=== PATIENT | female | born 1965 | race African-American/Black ===

== ENCOUNTER 2017-02-21 12:52 | Emergency (ER) | payer SELFPAY ==
[~2017-02-21] VITALS: Ht 165.1 cm; Wt 85.0 kg
[2017-02-21] MEDS ORDERED: HALOPERIDOL LACTATE 5MG/ML VIAL IM STA (13:29)
[2017-02-21] MEDS ORDERED: SODIUM CHLORIDE 0.9% 1,000 ML IV ONE (13:29)
[2017-02-21] MEDS ORDERED: LORAZEPAM 2MG/ML CPJ IV STA (13:29)
[2017-02-21 14:41] LABS: BASOPHILS % 0.6 % (0.0-2.0); EOSINOPHILS % 0.5 % (0.0-5.0); HEMATOCRIT. 43.7 % (36.0-48.0); HEMOGLOBIN. 14.9 g/dL (12.0-16.0); LYMPHOCYTES % 23.2 % (20.0-50.0); MEAN CORPUSCULAR HEMOGLOBIN 28.7 pg (28.0-32.0); MEAN PLATELET VOLUME 7.9 fl (7.4-10.4); MONOCYTES % 6.5 % (2.0-8.0); NEUTROPHILS % 69.2 % (40.0-76.0); PLATELET 322 x1000/uL (130-400); RED CELL DISTRIBUTION WIDTH 13.8 % (11.6-14.6)
[2017-02-21 14:57] LABS: CARBON DIOXIDE 27 mEq/L (21-32); CHLORIDE 106 mEq/L (98-107); ETHANOL BLOOD < 10 mg/dL
[2017-02-21 15:04] LABS: HCG SCREEN NEGATIVE
[2017-02-21] MEDS ORDERED: OLANZAPINE 10 MG/VIAL IM STA (15:29)
[2017-02-21] MEDS ORDERED: OLANZAPINE 10 MG/VIAL IM SCH (15:30)
[2017-02-21 16:01] LABS: CLARITY URINE CLEAR (CLEAR); COLOR URINE YELLOW (YELLOW); GLUCOSE URINE NEGATIVE (NEGATIVE); KETONES URINE NEGATIVE (NEGATIVE); LEUKOCYTE ESTERASE URINE NEGATIVE (NEGATIVE); NITRITE URINE NEGATIVE (NEGATIVE); OCCULT BLOOD URINE NEGATIVE (NEGATIVE); PH URINE 8.5 (4.5-8.0); PROTEIN URINE NEGATIVE (NEGATIVE); SPECIFIC GRAVITY URINE 1.009 (1.005-1.030); UROBILINOGEN URINE 0.2 E.U./dL (0.2-1.0)
[2017-02-21 16:21] LABS: *AMPHETAMINES SCREEN URINE NEGATIVE (NEGATIVE); *BARBITURATES SCREEN URINE NEGATIVE (NEGATIVE); *BENZODIAZEPINES SCREEN URINE PRESUMTIVE POSITIVE (NEGATIVE); *COCAINE SCREEN URINE NEGATIVE (NEGATIVE); CANNABINOID URINE SCREEN PRESUMTIVE POSITIVE (NEGATIVE); METHADONE URINE SCREEN NEGATIVE (NEGATIVE); OPIATES URINE SCREEN NEGATIVE (NEGATIVE); PHENCYCLIDINE URINE SCREEN NEGATIVE (NEGATIVE)
[2017-02-21] MEDS ORDERED: OLANZAPINE 10 MG/VIAL IM ONE (21:45)
[2017-02-22] MEDS ORDERED: OLANZAPINE 10 MG/VIAL IM ONE (07:15)
[2017-02-22 10:00] VITALS: BP 137/79
== END 2017-02-22 12:37 | disposition home or self-care (01) ==
LOC: ER 13:23
DX: F23 Brief psychotic disorder (principal); G93.40 Encephalopathy, unspecified
CPT/HCPCS: 36415; 70450; 80053; 80305; 80307; 80329; 81003; 84443; 84703; 85025; 96361; 96372; 96374; 99285; G0482; J1630; J2060; J3490; J7030; Z7610

== ENCOUNTER 2017-02-25 09:46 | Emergency (ER) | payer OTHER ==
[~2017-02-25] VITALS: Ht 170.2 cm; Wt 70.0 kg
[2017-02-25 09:48] VITALS: BP 180/90
[2017-02-25] MEDS ORDERED: LORAZEPAM 2MG/ML CPJ IM ONE (11:45)
[2017-02-25 12:24] LABS: BASOPHILS % 0.8 % (0.0-2.0); EOSINOPHILS % 0.2 % (0.0-5.0); HEMATOCRIT. 42.1 % (36.0-48.0); HEMOGLOBIN. 14.4 g/dL (12.0-16.0); LYMPHOCYTES % 15.2 % (20.0-50.0); MEAN CORPUSCULAR HEMOGLOBIN 28.8 pg (28.0-32.0); MEAN CORPUSCULAR VOLUME 84.4 fL (81.0-99.0); MEAN PLATELET VOLUME 8.1 fl (7.4-10.4); NEUTROPHILS % 77.8 % (40.0-76.0); PLATELET 327 x1000/uL (130-400); RED BLOOD CELL COUNT 4.99 mill/uL (4.2-5.4); RED CELL DISTRIBUTION WIDTH 13.7 % (11.6-14.6)
[2017-02-25 12:36] LABS: CARBON DIOXIDE 28 mEq/L (21-32); CHLORIDE 106 mEq/L (98-107); ETHANOL BLOOD < 10 mg/dL
[2017-02-25 13:08] LABS: *AMPHETAMINES SCREEN URINE NEGATIVE (NEGATIVE); *BARBITURATES SCREEN URINE NEGATIVE (NEGATIVE); *BENZODIAZEPINES SCREEN URINE NEGATIVE (NEGATIVE); *COCAINE SCREEN URINE NEGATIVE (NEGATIVE); CANNABINOID URINE SCREEN PRESUMTIVE POSITIVE (NEGATIVE); METHADONE URINE SCREEN NEGATIVE (NEGATIVE); OPIATES URINE SCREEN NEGATIVE (NEGATIVE); PHENCYCLIDINE URINE SCREEN NEGATIVE (NEGATIVE)
== END 2017-02-25 13:30 | disposition left against medical advice (07) ==
LOC: ER 10:05
DX: F23 Brief psychotic disorder (principal)
CPT/HCPCS: 36415; 80048; 80305; 80307; 80329; 85025; 96372; 99284; G0482; J2060